=== PATIENT | male | born 1970 ===

== ENCOUNTER 2018-09-12 03:41 | Emergency (ER) | payer OTHER ==
[2018-09-12 03:53] VITALS: BMI 22.1
[2018-09-12] MEDS ORDERED: Sodium Chloride 0.9% 1,000 ML IV ONE (03:56)
--- NOTE | 2018-09-12 03:56 | C.PDOC ---
History Of Present Illness 48 year old male presents to the ER with recurrent palpitations since 2299. Patient has a Hx of prior similar episodes for many years with increased frequency, now they have occurred once every 1-2 months in the past year, has not had a past doctor evaluation for the symptoms, usually at home he will submerge his face in ice water which stops the symptoms. He states the current episode is more intense and prolonged, reports having trouble sleeping and feeling very tired. Denies dizziness or chest pain. History Per: Patient History/Exam Limitations: no limitations Onset/Duration Of Symptoms: Hrs Current Symptoms Are (Timing): Still Present Associated Symptoms: Other (Tired). denies: Chest Pain, Dizziness Quality Of Symptoms: Rapid Heart Rate Recent travel outside of the [place]: No Past Medical History Reviewed: Historical Data, Nursing Documentation, Vital Signs Family History: States: Unknown Family Hx Review Of Systems Except As Marked, All Systems Reviewed And Found Negative. Constitutional: Positive for: Other (tired). Negative for: Fever, Chills Eyes: Negative for: Vision Change Cardiovascular: Positive for: Palpitations. Negative for: Chest Pain Respiratory: Negative for: Shortness of Breath Gastrointestinal: Negative for: Nausea, Vomiting Neurological: Negative for: Dizziness Physical Exam - Physical Exam Appears: Non-toxic, Other (Moderate distress) Skin: Normal Color, Warm, Dry Head: Atraumatic, Normacephalic Eye(s): bilateral: Normal Inspection Oral Mucosa: Moist Neck: Normal, Supple Chest: Symmetrical, No Tenderness Cardiovascular: Rhythm Regular (Tachycardic) Respiratory: Normal Breath Sounds, No Rales, No Rhonchi, No Wheezing Gastrointestinal/Abdominal: Soft, No Tenderness Back: No CVA Tenderness Pulses: Left Radial: Normal, Right Radial: Normal Neurological/Psych: Oriented x3, Normal Speech ED Course And Treatment - Laboratory Results Result Diagrams: 09/12/18 03:56 09/12/18 04:33 ECG: Interpreted By Me Interpretation Of ECG: SVT Rate From EC - Radiology CXR: Interpreted by Me, Viewed By Me CXR Interpretation: Yes: No Acute Disease. No: Infiltrates Progress - Re-Evaluation Re-evaluation Note: 09/12/18 03:53 SP ADENOSINE 6 MG NO IMPROVE. ADENOSINE 12 MG GIVEN, NOW NSR. PS FEELS BETTER 09/12/18 03:55 REPEAT EKG SINUS TACH @ 101 09/12/18 05:06 REMAINS NSR, ASYMPT. NO RECUR SVT - Data Reviewed Data Reviewed: Lab, EKG - Critical Care Citical Care: Excluding Proc Time Critical Care Time: 90 minutes Medical Decision Making Medical Decision Making: Plan: * EKG * CXR * Blood work * Adenosine * IV fluids Disposition Counseled Patient/Family Regarding: Studies Performed, Diagnosis, Need For Followup - Disposition Referrals: [facility] [Outside] [facility] [Outside] Disposition: HOME/ ROUTINE Disposition Time: 05:07 Condition: IMPROVED Instructions: Supraventricular Tachycardia (SVT) Forms: Work Excuse - Clinical Impression Clinical Impression: SVT (supraventricular tachycardia) - Scribe Statement The provider has reviewed the documentation as recorded by the Scribe Christiano Mcintyre All medical record entries made by the Scribe were at my direction and personally dictated by me. I have reviewed the chart and agree that the record accurately reflects my personal performance of the history, physical exam, medical decision making, and the department course for this patient. I have also personally directed, reviewed, and agree with the discharge instructions and disposition.
[2018-09-12 04:16] LABS: BASO # 0.1 K/uL (0.0-0.2); BASO % 0.9 % (0.0-2.0); EOS # 0.3 K/uL (0.0-0.7); EOS % 2.4 % (0.0-4.0); HEMOGLOBIN 16.1 g/dL (12.0-18.0); MEAN CELL VOLUME 89.9 fL (80.0-94.0); MEAN CORPUSCULAR HEMOGLOBIN 30.5 pg (27.0-31.0); MEAN CORPUSCULAR HGB CONC 33.9 g/dL (33.0-37.0); MEAN PLATELET VOLUME 8.9 fL (7.2-11.7); MONO # 0.6 K/uL (0.0-0.8); MONO % 4.3 % (0.0-10.0); NEUT # 9.3 K/uL (1.8-7.0); NEUT % 64.4 % (50.0-75.0); NRBC % 0.1 % (0.0-2.0); RBC 5.27 Mil/uL (4.40-5.90); RED CELL DISTRIBUTION WIDTH 13.9 % (11.5-14.5); WHITE BLOOD COUNT 14.4 K/uL (4.8-10.8)
[2018-09-12 04:56] LABS: BLOOD UREA NITROGEN 22 mg/dL (9-20); CALCIUM 9.4 mg/dl (8.6-10.4); GFR NON-AFRICAN AMERICAN 59
[2018-09-12 05:24] VITALS: BP 105/75; PULSE 90; RESP 18; TEMP 98; O2SAT 100
--- NOTE | 2018-09-12 10:02 | RAD ---
Date of service: 09/12/2018 HISTORY: Palpations COMPARISON: No prior. TECHNIQUE: Chest PA and lateral FINDINGS: LUNGS: Regional abnormal appearing bronchovascular and interstitial lung markings-right upper lobe. Right upper lobe faint low-density opacity also suspect. PLEURA: No significant pleural effusion identified. No pneumothorax apparent. CARDIOVASCULAR: No aortic atherosclerotic calcification present Normal heart size OSSEOUS STRUCTURES: No significant abnormalities. VISUALIZED UPPER ABDOMEN: Normal. OTHER FINDINGS: None. IMPRESSION: Infiltrate right upper lobe. Follow-up to resolution recommended. Comments: Study marked for PA review .
--- NOTE | 2018-09-13 19:49 | CARD ---
APPROVED REPORT Date of service: 09/12/2018 EKG Measurement Heart [id number] <Conclusion> Sinus tachycardia Otherwise normal ECG
--- NOTE | 2018-09-13 19:52 | CARD ---
APPROVED REPORT Date of service: 09/12/2018 EKG Measurement Heart [id number] <Conclusion> A run of SVT terminated in sinus rhythm with APCs Junctional ST depression, probably normal Abnormal ECG
--- NOTE | 2018-09-13 19:53 | CARD ---
APPROVED REPORT Date of service: 09/12/2018 EKG Measurement Heart [id number] <Conclusion> Supraventricular tachycardia ST & T wave abnormality, consider inferior ischemia Abnormal ECG
== END 2018-09-12 05:25 | disposition home or self-care (01) ==
LOC: C.ER 03:41
DX: I47.1 Supraventricular tachycardia (principal)
CPT/HCPCS: 71046; 80048; 85025; 93005; 96374; 99284; J0153; J7030

== ENCOUNTER 2018-09-20 04:44 | Emergency (ER) | payer SELFPAY ==
[2018-09-20 04:44] VITALS: BMI 22.1
--- NOTE | 2018-09-20 05:12 | C.PDOC ---
History Of Present Illness 48 y/o male presents to the ED for evaluation of palpitations, onset around 8:30 pm. Patient reports having had similar symptoms before, and has been found in SVT multiple times over the years. He states he can usually take deep breaths and the symptoms go away, however last week he did come in and reports improvement after adenosine. Patient admits to feeling slightly short of breath but denies any chest pain, dizziness, nausea, vomiting, lightheadedness, or visual loss. Time Seen by Provider: 09/20/18 05:05 Chief Complaint (Nursing): Palpitations History Per: Patient History/Exam Limitations: no limitations Onset/Duration Of Symptoms: Hrs Current Symptoms Are (Timing): Still Present Past Medical History Reviewed: Historical Data, Nursing Documentation, Vital Signs Vital Signs: Last Vital Signs Temp Pulse 200 H 09/20/18 04:56 Resp 24 09/20/18 04:56 BP 122/68 09/20/18 04:56 Pulse Ox 97 09/20/18 04:56 - Medical History PMH: No Chronic Diseases Family History: States: Unknown Family Hx - Social History Hx Tobacco Use: No Hx Alcohol Use: No Hx Substance Use: No - Immunization History Hx Tetanus Toxoid Vaccination: No Hx Influenza Vaccination: No Hx Pneumococcal Vaccination: No Review Of Systems Constitutional: Negative for: Fever, Chills Eyes: Negative for: Vision Change Cardiovascular: Positive for: Palpitations. Negative for: Chest Pain, Light Headedness Respiratory: Positive for: Shortness of Breath (mild) Gastrointestinal: Negative for: Nausea, Vomiting Neurological: Negative for: Weakness, Numbness, Change in Speech, Headache, Dizziness Physical Exam - Physical Exam Appears: Non-toxic, No Acute Distress Skin: Warm, Dry Head: Atraumatic, Normacephalic Eye(s): bilateral: Normal Inspection, PERRL, EOMI Oral Mucosa: Moist Neck: Normal ROM Chest: Symmetrical Cardiovascular: Rhythm Regular (but tachycardic) Respiratory: No Rhonchi, No Wheezing, Other (Tachypnic) Gastrointestinal/Abdominal: Soft, No Tenderness, No Distention Extremity: Bilateral: Atraumatic, Normal Color And Temperature, Normal ROM Pulses: Left Radial: Normal, Right Radial: Normal Neurological/Psych: Oriented x3, Normal Speech ED Course And Treatment - Laboratory Results Result Diagrams: 09/20/18 05:34 09/20/18 05:30 ECG: Interpreted By Me (@ 4:58am) ECG Rhythm: SVT (at 199 bpm) Interpretation Of ECG: Normal axis, Normal QTc O2 Sat by Pulse Oximetry: 97 (RA) Pulse Ox Interpretation: Normal Critical Care Time - Critical Care Note Total Time (in mins): 30 Documented critical care: time excludes all time spent performing seperately billable procedures. Medical Decision Making Medical Decision Making: Impression: Palpitations Patient arrives to the ED in SVT. Plan: Administered 6mg adenosine w/ no change in rhythm. Administered 12mg adenosine, converted to sinus rhythm. HR 98. Labs ordered. Repeat EKG @ 5:03am Sinus Rhythm at 98 bpm, normal axis, normal intervals, no ST or T wave changes Patient stable with no further episodes of SVT throughout ED course. Labs done and were unremarkable. Patient referred to [facility]. Advised to follow up as soon as possible as outpatient. Return to the ED for any new or worsening symptoms. Disposition - Disposition Referrals: [facility] [Outside] Disposition: HOME/ ROUTINE Disposition Time: 06:45 Condition: GOOD Additional Instructions: ROSIE VOGT, thank you for letting us take care of you today. Your provider was Yi Blas MD and you were treated for PALPITATIONS. The emergency medical care you received today was directed at your acute symptoms. If you were prescribed any medication, please fill it and take as directed. It may take several days for your symptoms to resolve. Return to the Emergency Department if your symptoms worsen, do not improve, or if you have any other problems. Please contact your doctor or call one of the physicians/clinics you have been referred to that are listed on the Patient Visit Information form that is included in your discharge packet. Bring any paperwork you were given at discharge with you along with any medications you are taking to your follow up visit. Our treatment cannot replace ongoing medical care by a primary care prov ider outside of the emergency department. Thank you for allowing the [facility] team to be part of your care today. If you had an X-Ray or CT scan: A Radiologist will review the ED reading if any change in treatment is needed we will contact you. If you had a blood, urine, or wound culture: It will take several days for the results, if any change in treatment is needed we will contact you. If you had an STI test: It will take 48 hours for the results. Please call after 1 week if you have not heard back. Instructions: Supraventricular Tachycardia (SVT) Forms: [employer] (Rwandan) - Clinical Impression Clinical Impression: SVT (supraventricular tachycardia) - Scribe Statement The provider has reviewed the documentation as recorded by the Billie Caicedo Provider Attestation: All medical record entries made by the Billie were at my direction and personally dictated by me. I have reviewed the chart and agree that the record accurately reflects my personal performance of the history, physical exam, medical decision making, and the department course for this patient. I have also personally directed, reviewed, and agree with the discharge instructions and disposition.
[2018-09-20 05:23] LABS: BASO # 0.1 K/uL (0.0-0.2); BASO % 0.6 % (0.0-2.0); EOS # 0.3 K/uL (0.0-0.7); EOS % 2.2 % (0.0-4.0); HEMOGLOBIN 15.5 g/dL (12.0-18.0); LYMPH # 3.3 K/uL (1.0-4.3); LYMPH % 26.5 % (20.0-40.0); MEAN CELL VOLUME 90.2 fL (80.0-94.0); MEAN CORPUSCULAR HGB CONC 33.2 g/dL (33.0-37.0); MEAN PLATELET VOLUME 8.8 fL (7.2-11.7); MONO # 1.1 K/uL (0.0-0.8); MONO % 8.9 % (0.0-10.0); NEUT # 7.6 K/uL (1.8-7.0); NEUT % 61.8 % (50.0-75.0); NRBC % 0.1 % (0.0-2.0); RBC 5.17 Mil/uL (4.40-5.90); RED CELL DISTRIBUTION WIDTH 13.7 % (11.5-14.5); WHITE BLOOD COUNT 12.3 K/uL (4.8-10.8)
[2018-09-20 05:35] VITALS: RESP 18
[2018-09-20 05:48] LABS: BLOOD UREA NITROGEN 24 mg/dL (9-20); CALCIUM 8.8 mg/dl (8.6-10.4); GFR NON-AFRICAN AMERICAN 55
[2018-09-20 06:23] VITALS: BP 110/67; PULSE 88
[2018-09-20 06:53] VITALS: O2SAT 97
--- NOTE | 2018-09-20 11:24 | CARD ---
APPROVED REPORT Date of service: 09/20/2018 EKG Measurement Heart [id number] <Conclusion> Supraventricular tachycardia Possible Right ventricular hypertrophy Anterior infarct, age undetermined Abnormal ECG
--- NOTE | 2018-09-20 11:24 | CARD ---
APPROVED REPORT Date of service: 09/20/2018 EKG Measurement Heart [id number] MD [id number] [id number] <Conclusion> Normal sinus rhythm Possible Left atrial enlargement Borderline ECG
== END 2018-09-20 06:34 | disposition home or self-care (01) ==
LOC: C.ER 04:44
DX: I47.1 Supraventricular tachycardia (principal)
CPT/HCPCS: 80048; 83735; 84100; 84443; 84484; 85025; 93005; 94770; 96374; 99285; J0153

== ENCOUNTER 2018-11-15 22:31 | Emergency (ER) | payer OTHER ==
[2018-11-15 22:31] VITALS: BMI 22.1
[2018-11-15 22:47] VITALS: TEMP 97.6
[2018-11-15] MEDS ORDERED: Sodium Chloride 0.9% 1,000 ML IV ONE (23:00)
--- NOTE | 2018-11-15 23:00 | C.PDOC ---
History Of Present Illness Patient presents to the ER with SVT that began around 1900. Patient has had similar episodes in the past and is on a beta armani. Denies chest pain, states he just feels rapid heart rate. Patient tried a valsalva maneuver with no re lief. Time Seen by Provider: 11/15/18 22:32 Chief Complaint (Nursing): Palpitations History Per: Patient History/Exam Limitations: no limitations Onset/Duration Of Symptoms: Hrs Current Symptoms Are (Timing): Still Present Severity: Severe Pain Scale Rating Of: 8 Recent travel outside of the [place]: No Past Medical History Reviewed: Historical Data, Nursing Documentation, Vital Signs Vital Signs: Last Vital Signs Temp 97.6 F 11/15/18 22:44 Pulse 200 H 11/15/18 22:44 Resp 16 11/15/18 22:44 BP 104/73 11/15/18 22:44 Pulse Ox 98 11/15/18 22:44 Family History: States: No Known Family Hx - Social History Hx Tobacco Use: No Hx Alcohol Use: No Hx Substance Use: No - Immunization History Hx Tetanus Toxoid Vaccination: No Hx Influenza Vaccination: No Hx Pneumococcal Vaccination: No Review Of Systems Constitutional: Negative for: Fever, Chills Eyes: Negative for: Vision Change Cardiovascular: Positive for: Other (Rapid heart rate). Negative for: Chest Pain Respiratory: Negative for: Cough, Shortness of Breath Gastrointestinal: Negative for: Nausea, Vomiting Genitourinary: Negative for: Dysuria, Hematuria Skin: Negative for: Rash Neurological: Negative for: Weakness, Numbness Physical Exam - Physical Exam Appears: In Acute Distress Skin: Warm, Dry Head: Normacephalic Eye(s): bilateral: Normal Inspection Oral Mucosa: Moist Neck: Trachea Midline, Supple Chest: Symmetrical, No Tenderness Cardiovascular: Rhythm Regular (Tachycardic) Respiratory: No Rales, No Rhonchi, No Wheezing Gastrointestinal/Abdominal: Soft, No Tenderness Back: No CVA Tenderness Extremity: Other (Moves all extremities) Neurological/Psych: Oriented x3 ED Course And Treatment - Laboratory Results Result Diagrams: 11/15/18 23:14 11/15/18 23:14 ECG: Interpreted By Me, Viewed By Me ECG Rhythm: Sinus Tachycardia (193), Nonspecific Changes O2 Sat by Pulse Oximetry: 98 (room air) Pulse Ox Interpretation: Normal - Radiology CXR: Interpreted by Me, Viewed By Me CXR Interpretation: No: Infiltrates, Fracture, Pnemothorax Progress Note: 10:59 pm repeat ekg after 6,12 mg iv adenosine( no change, and 15 mg iv cardizen nsr 80 bpm nsst changes Critical Care Time - Critical Care Note Total Time (in mins): 30 Documented critical care: time excludes all time spent performing seperately billable procedures. Disposition Counseled Patient/Family Regarding: Studies Performed, Diagnosis, Need For Fol lowup - Disposition Referrals: Reynold Gonzalez MD [Staff Provider] - Disposition: HOME/ ROUTINE Disposition Time: 22:59 Condition: FAIR Additional Instructions: Please return if symptoms recur Instructions: Supraventricular Tachycardia (SVT), Hypothyroidism (Underactive Thyroid) (DC) Forms: [employer] (Bahraini) Print Language: [id number] - Clinical Impression Clinical Impression: SVT (supraventricular tachycardia) - Scribe Statement The provider has reviewed the documentation as recorded by the Scribe Christiano Mcintyre All medical record entries made by the Scribe were at my direction and personal ly dictated by me. I have reviewed the chart and agree that the record accurately reflects my personal performance of the history, physical exam, medical decision making, and the department course for this patient. I have also personally directed, reviewed, and agree with the discharge instructions and disposition.
[2018-11-15 23:21] LABS: BASO # 0.1 K/uL (0.0-0.2); BASO % 0.7 % (0.0-2.0); EOS # 0.3 K/uL (0.0-0.7); EOS % 3.2 % (0.0-4.0); HEMOGLOBIN 15.4 g/dL (12.0-18.0); LYMPH # 5.2 K/uL (1.0-4.3); LYMPH % 53.5 % (20.0-40.0); MEAN CELL VOLUME 91.3 fL (80.0-94.0); MEAN CORPUSCULAR HEMOGLOBIN 31.6 pg (27.0-31.0); MEAN CORPUSCULAR HGB CONC 34.6 g/dL (33.0-37.0); MEAN PLATELET VOLUME 8.8 fL (7.2-11.7); MONO # 0.4 K/uL (0.0-0.8); NEUT # 3.7 K/uL (1.8-7.0); NEUT % 38.6 % (50.0-75.0); NRBC % 0.1 % (0.0-2.0); RBC 4.88 Mil/uL (4.40-5.90); RED CELL DISTRIBUTION WIDTH 13.6 % (11.5-14.5); WHITE BLOOD COUNT 9.7 K/uL (4.8-10.8)
[2018-11-15 23:28] LABS: INR 1.1; PROTHROMBIN TIME 11.6 SECONDS (9.7-12.2)
[2018-11-15 23:33] LABS: ALB/GLOB RATIO 1.7 (1.0-2.1); ALBUMIN 4.4 g/dL (3.5-5.0); ALT/SGPT 35 U/L (21-72); AST/SGOT 31 U/L (17-59); BLOOD UREA NITROGEN 28 mg/dL (9-20); CALCIUM 8.7 mg/dl (8.6-10.4); GFR NON-AFRICAN AMERICAN 50
[2018-11-16 01:16] VITALS: BP 110/68; PULSE 82; RESP 20; O2SAT 97
--- NOTE | 2018-11-16 08:25 | RAD ---
Date of service: 11/15/2018 PROCEDURE: CHEST RADIOGRAPH, 1 VIEW HISTORY: chest pain COMPARISON: 09/12/2018 FINDINGS: LUNGS: No interval consolidation. Current lung inspiration is less now than before prior appearance was prominently hyperinflated. Prominent vessel coursing over the lung bases is a similar appearance with prior study. PLEURA: No pneumothorax or pleural fluid seen. CARDIOVASCULAR: There is absence of aortic atherosclerotic calcification on x-ray. Normal heart size. No significant appearing pulmonary venous congestion. OSSEOUS STRUCTURES: Deformity lateral clavicle compatible with prior trauma-this portion of the distal lateral clavicle was excluded from the field of view on the prior study. VISUALIZED UPPER ABDOMEN: Normal. OTHER FINDINGS: None. IMPRESSION: No acute cardiopulmonary pathology appreciated. Prior trauma lateral left clavicle inferred.
--- NOTE | 2018-11-16 22:31 | CARD ---
APPROVED REPORT Date of service: 11/15/2018 EKG Measurement Heart [id number] NH 170P58 [id number] <Conclusion> Normal sinus rhythm Normal ECG
== END 2018-11-16 01:14 | disposition home or self-care (01) ==
LOC: C.ER 22:31
DX: I47.1 Supraventricular tachycardia (principal)
CPT/HCPCS: 71045; 80053; 84443; 84484; 85025; 85610; 85730; 93005; 96374; 96375; 96376; 99285; J0153; J7030

== ENCOUNTER 2018-12-13 21:08 | Emergency (ER) | payer OTHER ==
[2018-12-13 21:08] VITALS: BMI 22.1
[2018-12-13 21:25] VITALS: O2SAT 98
[2018-12-13] MEDS ORDERED: Sodium Chloride 0.9% 1,000 ML IV ONE (21:37)
--- NOTE | 2018-12-13 21:37 | C.PDOC ---
History Of Present Illness The patient, whose past medical history includes SVT, presents to the ED for evaluation of rapid heart rate which began around 1.5 hours prior to arrival. Patient denies chest pain, shortness of breath, and dizziness. Time Seen by Provider: 12/13/18 21:26 Chief Complaint (Nursing): Palpitations History Per: Patient History/Exam Limitations: no limitations Onset/Duration Of Symptoms: Hrs Current Symptoms Are (Timing): Still Present Associated Symptoms: denies: Chest Pain Quality Of Symptoms: Rapid Heart Rate Severity: None Pain Scale Rating Of: 0 Exacerbating Factor(s): Pos: None Recent travel outside of the [place]: No Additional History Per: Patient Past Medical History Reviewed: Historical Data, Nursing Documentation, Vital Signs Vital Signs: Last Vital Signs Temp Pulse 200 H 12/13/18 21:21 Resp 20 12/13/18 21:21 BP 97/76 L 12/13/18 21:21 Pulse Ox 98 12/13/18 21:21 - Medical History PMH: No Chronic Diseases Surgical History: No Surg Hx Family History: States: Unknown Family Hx - Social History Hx Tobacco Use: No Hx Alcohol Use: No Hx Substance Use: No - Immunization History Hx Tetanus Toxoid Vaccination: No Hx Influenza Vaccination: No Hx Pneumococcal Vaccination: No Review Of Systems Constitutional: Negative for: Fever, Chills Cardiovascular: Positive for: Other (rapid heart rate ). Negative for: Chest Pain Respiratory: Negative for: Cough, Shortness of Breath Gastrointestinal: Negative for: Nausea, Vomiting, Abdominal Pain Genitourinary: Negative for: Dysuria, Frequency, Hematuria Musculoskeletal: Negative for: Back Pain Skin: Negative for: Rash, Lesions, Jaundice, Bruising Neurological: Negative for: Weakness, Numbness, Dizziness Psych: Negative for: Anxiety Physical Exam - Physical Exam Appears: Non-toxic, No Acute Distress Skin: Warm, Dry Head: Normacephalic Eye(s): bilateral: Normal Inspection Oral Mucosa: Moist Neck: Supple Chest: Symmetrical, No Deformity Cardiovascular: Rhythm Regular, No Murmur, Other (tachycardia ) Respiratory: No Rales, No Rhonchi, No Wheezing Extremity: Normal ROM, Capillary Refill (less than 2 seconds) Neurological/Psych: Oriented x3 ED Course And Treatment - Laboratory Results Result Diagrams: 12/13/18 21:46 12/13/18 21:46 ECG: Interpreted By Me, Viewed By Me ECG Rhythm: Sinus Tachycardia (189), Nonspecific Changes O2 Sat by Pulse Oximetry: 98 (on RA ) Pulse Ox Interpretation: Normal - Radiology CXR: Interpreted by Me, Viewed By Me CXR Interpretation: No: Infiltrates, Fracture, Cardiomegaly Progress Note: Bloodwork, CXR, EKG ordered and reviewed. Patient was initially given IV Fluids and 6mg of Adenosine IVP without improvement. Patient given 12mg of Adenosine IVP which improved patient's heart rate to 95bpm. Repeat EKG done at 2140 shows sinus rhythm at 83bpm, nonspecific changes. Patient reports improvement in symptoms. Reevaluation Time: 22:39 Reassessment Condition: Improved Critical Care Time - Critical Care Note Total Time (in mins): 30 Documented critical care: time excludes all time spent performing seperately billable procedures. Medical Decision Making Medical Decision Making: Upon provider reevaluation patient is feeling better, is medically stable, and requires no further treatment in the ED at this time. Patient will be discharged home . Counseling was provided and all questions were answered regarding diagnosis and need for follow up with the referred clinic. There is agreement to discharge plan. Return if symptoms persist or worsen. Disposition Counseled Patient/Family Regarding: Studies Performed, Diagnosis, Need For Followup - Disposition Referrals: [facility] [Outside] [facility] [Outside] Disposition: HOME/ ROUTINE Disposition Time: 21:37 Condition: FAIR Additional Instructions: Please return if symptoms recur Instructions: Supraventricular Tachycardia (SVT), Hypothyroidism (Underactive Thyroid) (DC) Forms: [facility] (Occitan) - Clinical Impression Clinical Impression: Palpitations, SVT (supraventricular tachycardia), Hypothyroid - Scribe Statement The provider has reviewed the documentation as recorded by the Scribe (Lenore Quinn) Provider Attestation: All medical record entries made by the Scribe were at my direction and personally dictated by me. I have reviewed the chart and agree that the record accurately reflects my personal performance of the history, physical exam, medical decision making, and the department course for this patient. I have also personally directed, reviewed, and agree with the discharge instructions and disposition.
[2018-12-13 21:50] LABS: BASO # 0.1 K/uL (0.0-0.2); BASO % 1.3 % (0.0-2.0); EOS # 0.3 K/uL (0.0-0.7); EOS % 3.7 % (0.0-4.0); HEMOGLOBIN 14.8 g/dL (12.0-18.0); LYMPH # 3.8 K/uL (1.0-4.3); LYMPH % 51.3 % (20.0-40.0); MEAN CELL VOLUME 91.3 fL (80.0-94.0); MEAN CORPUSCULAR HEMOGLOBIN 29.6 pg (27.0-31.0); MEAN CORPUSCULAR HGB CONC 32.4 g/dL (33.0-37.0); MEAN PLATELET VOLUME 8.1 fL (7.2-11.7); MONO # 0.8 K/uL (0.0-0.8); MONO % 10.9 % (0.0-10.0); NEUT # 2.4 K/uL (1.8-7.0); NEUT % 32.8 % (50.0-75.0); NRBC % 0.2 % (0.0-2.0); RBC 5.01 Mil/uL (4.40-5.90); RED CELL DISTRIBUTION WIDTH 13.5 % (11.5-14.5); WHITE BLOOD COUNT 7.4 K/uL (4.8-10.8)
[2018-12-13 22:36] LABS: ALBUMIN 4.6 g/dL (3.5-5.0); BLOOD UREA NITROGEN 19 mg/dL (9-20); GFR NON-AFRICAN AMERICAN > 60
[2018-12-13 22:37] LABS: ALB/GLOB RATIO 1.5 (1.0-2.1); ALT/SGPT 49 U/L (21-72); AST/SGOT 38 U/L (17-59)
[2018-12-13 22:57] VITALS: BP 124/82; PULSE 74; RESP 20; TEMP 98
--- NOTE | 2018-12-14 09:33 | RAD ---
Date of service: 12/13/2018 PROCEDURE: CHEST RADIOGRAPH, 1 VIEW HISTORY: chest pain COMPARISON: 11/15/2018 FINDINGS: LUNGS: Clear. PLEURA: No pneumothorax or pleural fluid seen. CARDIOVASCULAR: No aortic atherosclerotic calcification present. Normal. OSSEOUS STRUCTURES: Deformity of lateral left clavicle a compatible with old trauma-some VISUALIZED UPPER ABDOMEN: Normal. OTHER FINDINGS: None. IMPRESSION: No active disease. Comments: No preliminary ER impression at this time.
--- NOTE | 2018-12-14 11:23 | CARD ---
APPROVED REPORT Date of service: 12/13/2018 EKG Measurement Heart [id number] 164P48 [id number] <Conclusion> Normal sinus rhythm Normal ECG
== END 2018-12-13 23:06 | disposition home or self-care (01) ==
LOC: C.ER 21:08
DX: I47.1 Supraventricular tachycardia (principal); R00.2 Palpitations; E03.9 Hypothyroidism, unspecified
CPT/HCPCS: 71045; 80053; 84443; 84484; 85025; 93005; 96374; 99284; J0153; J7030